=== PATIENT | male | born 1955 | race Caucasian/White ===

== ENCOUNTER 2017-10-11 10:31 | Day surgery (SDC) | payer MEDICARE ==
[2017-10-08 11:50] VITALS: BMI 34.2
--- NOTE | 2017-10-10 10:40 | HP ---
HISTORY AND PHYSICAL CHIEF COMPLAINT: Right hand pain and numbness. HISTORY OF PRESENT ILLNESS: The patient is a 61-year-old, right-hand dominant, retired gentleman who presents with right hand pain and numbness. It has worsened over the past several years. He is having significant night symptoms. He is having difficult time with gripping and grasping. He has tried conservative measures. PAST MEDICAL HISTORY: Significant for hypercholesterolemia, hypertension, asthma, arthritis, heart disease, and zen-srmtcyn-wanglbdmq diabetes. PAST SURGICAL HISTORY: Significant for bypass surgery in addition to previous spine surgery. CURRENT MEDICATIONS: 1. Aspirin. 2. Atorvastatin. 3. Baclofen. 4. Hydrochlorothiazide. 5. Neurontin. 6. Proventil. 7. Viagra. 8. Norvasc. 9. Zoloft. ALLERGIES: He notes allergies to TEQUIN. FAMILY HISTORY: Family history is unknown. SOCIAL HISTORY: Significant for previous tobacco use; however, he quit in 2013. REVIEW OF SYSTEMS: Sixteen point review of systems otherwise reviewed and is noncontributory. PHYSICAL EXAMINATION: On examination, the patient is approximately 6 feet 2 inches, 268 pounds of endomorphic habitus. HEENT exam is nonfocal. Neck is supple. He is nontender about the right shoulder and elbow. On examination of his right hand, he has mild thenar wasting. Adductor pollicis brevis strength is 4/5 on the right, 5- over 5 on the left. On the right hand, he has a positive Tinel's over the carpal canal. Carpal tunnel compression test is positive. Light touch is diminished in the right thumb, index and middle finger. EMG report 09/17/2017 right upper extremity shows right median motor latency of the carpal canal 4.2, sensory latency 8.7. IMPRESSION: 1. Right carpal tunnel syndrome-symptomatic. 2. Wof-ntudind-kgraanhml diabetes. 3. History of heart disease. RECOMMENDATIONS: I talked to the patient at length regarding his condition and treatment options. At this point, he is quite symptomatic and opts to proceed with surgery. We will plan to proceed with right carpal tunnel release. We will likely perform that as an outpatient procedure utilizing local anesthetic and IV sedation. Risks and benefits were discussed at length in layman's terms. MMODL / IJN: [id number] /
[~2017-10-11 10:31] MED LIST: DEXAMETHASONE SOD PHOSPHATE 10 MG/ML 1 ML VIAL IV ONE; LIDOCAINE 1% 20 ML VIAL (10MG/ML) FOR IV START INTRADERMA PRN; MIDAZOLAM 2 MG/2 ML VIAL IV PRN; ONDANSETRON 4 MG/2 ML VIAL IVP ONE; ceFAZolin IN SWFI 2 GM/20 ML SYRINGE IVP ONE
[2017-10-11] MEDS: LACTATED RINGERS 1,000 ML IV SCH ×2 (11:08→12:00)
[2017-10-11] MEDS ORDERED: LIDOCAINE 1% INJ 10MG/ML (20 ML MDV) SQ ONE ×2 (11:19)
[2017-10-11] MEDS ORDERED: MIDAZOLAM 2 MG/2 ML VIAL ONE (12:02)
[2017-10-11] MEDS ORDERED: LIDOCAINE 1% INJ 10MG/ML (20 ML MDV) ONE (12:02)
[2017-10-11] MEDS ORDERED: fentaNYL (PF) 50 MCG/ML 2 ML AMP ONE (12:02)
[2017-10-11] MEDS ORDERED: PROPOFOL 10 MG/ML 20 ML VIAL IV ONE (12:02)
--- NOTE | 2017-10-11 12:39 | P.OP ---
Date of Procedure: 10/11/17 Preoperative Diagnosis: Right carpal tunnel syndromesymptomatic Postoperative Diagnosis: Same Procedure(s) Performed: Right carpal tunnel release Anesthesia: MAC, local Surgeon: Liborio Blank Estimated Blood Loss (ml): 2 Pathology: none sent Condition: stable Disposition: PACU Indications for Procedure: The patient's a 61-year-old gentleman who presents with progressive right hand pain and numbness secondary carpal tunnel syndrome despite conservative measures. A discussion of the risks and benefits of operative intervention versus continued conservative measures with patient. He opted to surgery. Operative risks to include infection, neurovascular injury, development of blood clots, possible incomplete resolution of symptoms, possible recurrence of symptoms and need for subsequent procedures was discussed. Informed consent was obtained. Operative Findings: As below Description of Procedure: The patient was brought to the operating room, and after induction of IV sedation the right upper extremity was prepped and draped in normal fashion. The proposed incision site was outlined in line with the radial aspect of the fourth ray extending from the volar wrist crease distally 2-1/2 cm. 10 mL 1% lidocaine was injected. The tourniquet was inflated to 250 mmHg. The skin incision was then made. The skin and subcu tissues were divided sharply. The superficial palmar fascia was identified and split in line with the skin incision. The transverse carpal ligament was identified and transected under direct visualization distally to level the palmar fat pad. I felt this was adequate distal release. Proximally was taken to level volar wrist crease. A plane above and below the transverse carpal ligament was then bluntly developed with tenotomies. The confluence of the distal forearm fascia and the transverse carpal ligament was then transected under direct visualization with the tines pointed in the ulnar direction. I felt this was adequate proximal release. Neural lysis was not performed. The wound was irrigated normal saline. The skin was reprepped with simple 3-0 nylon suture. A sterile dressing was applied. The tourniquet was deflated less than 15 minutes total tourniquet time. The patient was then awoken from sedation and transferred to recovery room in good condition. No complications were incurred. Sponge and needle counts were correct at the end of the case.
[2017-10-11 12:41] VITALS: TEMP 98
[2017-10-11 13:10] VITALS: RESP 16
[2017-10-11] MEDS ORDERED: Acetaminophen-Codeine 300-30mg TAB PO ONE (13:30)
[2017-10-11 13:50] VITALS: BP 133/76; PULSE 65
== END 2017-10-11 14:10 | disposition home or self-care (01) ==
LOC: OR 10:31
PROVIDERS: ATTEND Orthopaedic Surgery
DX: G56.01 Carpal tunnel syndrome, right upper limb (principal); E78.00 Pure hypercholesterolemia, unspecified; I10 Essential (primary) hypertension; J45.909 Unspecified asthma, uncomplicated; M19.90 Unspecified osteoarthritis, unspecified site; I51.9 Heart disease, unspecified; E11.9 Type 2 diabetes mellitus without complications; Z79.82 Long term (current) use of aspirin; Z79.899 Other long term (current) drug therapy; Z88.1 Allergy status to other antibiotic agents; Z87.891 Personal history of nicotine dependence; E66.01 Morbid (severe) obesity due to excess calories; Z68.34 Body mass index [BMI] 34.0-34.9, adult; Z95.1 Presence of aortocoronary bypass graft
CPT/HCPCS: 64721; J2250; J1100; J2405; J2001; J3010; J2704; J0690

== ENCOUNTER → 2018-08-05 | Outpatient (CLI) | payer MEDICARE ==
[2018-08-05 16:35] LABS: African American GFR (CKD) 84.1 (60.0-200.0)
== END | disposition home or self-care (01) ==
LOC: LABWHC1 11:11
PROVIDERS: ATTEND Internal Medicine Interventional Cardiology
DX: M79.662 Pain in left lower leg (principal); M79.661 Pain in right lower leg; I71.4 Abdominal aortic aneurysm, without rupture
CPT/HCPCS: 36415; 82565; 84520

== ENCOUNTER → 2018-08-07 | Outpatient (CLI) | payer MEDICARE ==
--- NOTE | 2018-08-07 08:21 | CT ---
EXAMINATION TYPE: CT angio abd aorta w/Runoff DATE OF EXAM: 08/07/2018 COMPARISON: None HISTORY: Decreased pressure in leg, Left leg pain CT DLP: 1695.8 mGycm, Automated Exposure Control for Dose Reduction was Utilized. CONTRAST: CT scan of the abdomen and pelvis is performed with oral and with IV Contrast, patient injected with 125 mL of Isovue 370. FINDINGS: ABDOMEN: The lungs are clear. Liver, pancreas, spleen, adrenal glands and gallbladder have a normal a ppearance. Multiple hypodensities in the kidney are indeterminate but likely related to simple cysts. Lipoma adjacent to the right is noted within the musculature. Bowel gas pattern nonspecific. Small anterior fat-containing abdominal hernia. No pathologic adenopat hy. OTHER: There is a mild to moderate atherosclerotic plaque of the aorta and its sidebranches. Maximal dimensi on is seen to measure 4.2 cm well below the origin of the renal arteries. Aneurysm originates approxi mately 2 cm below the lowest renal artery. There is ectasia of the proximal iliac vasculature with mo derate atherosclerotic plaque extends into the external and internal iliac arteries. There appears be a short segmental occlusion of the right internal iliac artery. Right lower extremity demonstrates moderate plaque present approximately 50-60% right common femoral artery with a isolated area of approximately 85 % stenosis on axial image 161. There is multifocal di sease throughout the superficial femoral artery with severe stenosis noted proximally. Deep femoral a rtery is patent with mild plaque. Enhancement infrapopliteal vasculature is limited. There is mild pl aque involving the right popliteal artery. Evaluation the trifurcation vessels is limited. There is p laque involving the anterior tibial peroneal trunk with a suspected significant stenosis on axial breana ge 83. Multifocal disease is seen. Trifurcation vessels are diminutive in size and reduced enhancemen t with mild atherosclerotic changes with all 3 vessels seen to the level of the ankle. Left lower extremity demonstrates atherosclerotic plaque involving the left common femoral artery shonna suring approximately 70%. There is a more isolated area of critical stenosis measuring greater than 9 0% on axial image 150 09/18/1956. Suspect a short segmental occlusion within the proximal superficial f emoral artery and there is significant plaque involving the left deep femoral artery. Multifocal dise ase of the remaining portion of superficial femoral artery with multifocal severe changes are suspect ed. There is reduced enhancement in the region which limits assessment. Popliteal artery demonstrates mild to moderate atherosclerotic plaque with approximately 50% stenosis on image 335. Tibioperoneal trunk and proximal anterior tibial artery demonstrates moderate disease. There is mild disease involv ing the proximal portion of the peroneal artery. 3 vessels are diminutive in size but seen to the lev el of the ankle to be patent IMPRESSION: IMPRESSION: 1. Infrarenal aortic aneurysm with a maximal dimension of approximately 4.2 cm. Aneurysm originates a pproximately 2 cm below the renal artery. There is ectasia of the proximal iliac vasculature without evidence of discrete aneurysm. 2. Diffuse atherosclerotic changes with multifocal disease involving the common femoral and superfici al femoral arteries bilaterally. There is reduced enhancement the level the femoral artery bilaterall y with suspected segmental occlusion involving the left superficial femoral artery. 2. Popliteal and infrapopliteal atherosclerotic occlusive disease as discussed above.
== END | disposition home or self-care (01) ==
LOC: RADCTMAIN 07:04
PROVIDERS: ATTEND Internal Medicine Interventional Cardiology
DX: I71.9 Aortic aneurysm of unspecified site, without rupture (principal); I70.209 Unspecified atherosclerosis of native arteries of extremities, unspecified extremity
CPT/HCPCS: 75635; Q9967

== ENCOUNTER 2018-11-05 12:19 | Day surgery (SDC) | payer MEDICARE ==
[~2018-11-05 12:19] MED LIST changes: +ASPIRIN 325 MG TAB PO STA; -DEXAMETHASONE SOD PHOSPHATE 10 MG/ML 1 ML VIAL IV ONE; -LIDOCAINE 1% 20 ML VIAL (10MG/ML) FOR IV START INTRADERMA PRN; -MIDAZOLAM 2 MG/2 ML VIAL IV PRN; -ONDANSETRON 4 MG/2 ML VIAL IVP ONE; +SODIUM CHLORIDE 0.9% 1,000 ML in EMPTY BAG 1 BAG IV ONE; -ceFAZolin IN SWFI 2 GM/20 ML SYRINGE IVP ONE
[2018-11-05] MEDS ORDERED: SODIUM CHLORIDE 0.9% 1,000 ML IV ONE (12:57)
[2018-11-05] MEDS ORDERED: MIDAZOLAM (PF) 2 MG/2 ML VIAL IV ONE ×2 (14:35→14:52)
[2018-11-05] MEDS ORDERED: LIDOCAINE 1% INJ 10MG/ML (20 ML MDV) SQ ONE (14:52)
[2018-11-05] MEDS ORDERED: SODIUM CHLORIDE 0.9% 500 ML 500 ML with niCARdipine 6.25 MG, NITROGLYCERIN-D5W PMX 0.05... IV ONE ×4 (15:00)
[2018-11-05] MEDS ORDERED: SODIUM CHLORIDE 0.9% 1,000 ML IV SCH (16:30)
--- NOTE | 2018-11-05 16:57 | IR ---
Fluoroscopy HISTORY: Arterial occlusion 20 minutes fluoroscopy time supplied to the referring clinician. 472 intraoperative C-arm images doc ument the procedure. See dictated report from cardiology.
[2018-11-05] MEDS ORDERED: ATROPINE SULFATE 0.1 MG/ML 10ML SYRINGE ONE (18:12)
[2018-11-05 18:40] VITALS: BMI 32.8
[2018-11-05] MEDS ORDERED: TEMAZEPAM 15 MG CAP PO PRN (21:38)
[2018-11-05] MEDS: amLODIPine 5 MG TAB PO SCH (21:58)
[2018-11-05] MEDS: CARVEDILOL 6.25 MG TAB PO SCH (21:58)
[2018-11-05] MEDS ORDERED: ATORVASTATIN 40 MG TAB PO SCH (22:00)
--- NOTE | 2018-11-05 22:49 | AN ---
ANGIOGRAPHY REPORT DATE OF SERVICE: November 05, 2018 PERFORMING PHYSICIAN: Yoni Schwarz MD, room service runner. PROCEDURE PERFORMED: 1. An abdominal aortogram .. 2. Bilateral lower extremities runoff. 3. Selective left common femoral artery angiogram. 4. Gradient measurement across the right common iliac artery. INDICATION: This is a 62-year-old gentleman who sees Dr. Cruz in the office as an outpatient with history of CAD, as well as multiple comorbid conditions, who was experiencing left leg intermittent claudication and he underwent CTA of the aorta and lower extremities and that showed occluded left femoral artery. Because of that he was brought today to undergo an intervention. APPROACH: Right common femoral artery. COMPLICATION: None. LEVEL OF SEDATION: Moderate with sedation length of an hour and 22 minutes. 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 The right common femoral artery was cannulated using micropuncture technique and a micropuncture wire passed easily and an 11 cm sheath in the right common femoral artery. I did select the left SFA using 0.035 [place] [employer]vantage wire with a 5-[place] Rim catheter. After that, I did exchange my 11 cm 6-Mozambican sheath into 55 cm 6-Moz[place]ican sheath using the 0.035 [place] Advantage wire. After that, I did selective left lower extremity angiogram. For the right leg, I did selective right lower extremity angiogram using the injection through the sheath. After that I did a gradient measurement across the common iliac artery. The procedure was completed without any complication. SELECTIVE PERIPHERAL ANGIOGRAM: 1. The aorta is aneurysmal. It does have no evidence of severe occlusive disease. 2. Common iliac arteries: The ostial of the right common iliac artery appeared to be hazy with intermediate lesion. I did a gradient across it and that came into be nonischemic. The left common iliac artery appeared to be angiographically normal. 3. Internal iliac arteries: Both are patent. 4. External iliac arteries: Both are patent. 5. Common femoral arteries: The right common femoral artery appeared to have mild disease only and the left common femoral artery is occluded. 6. Profunda: The right profunda is patent and the left profunda is occluded. 7. SFA: The right SFA has mild to moderate diffuse disease and the left SFA appeared to be occluded in the proximal portion and after that mild diffuse disease. 8. Popliteal: Both popliteals are patent. 9. Below the knee: There is 1 vessel runoff below the knee bilaterally with posterior tibial. CONCLUSION: 1. Abdominal aortic aneurysm. 2. Tortuous bilateral iliac arteries segments. 3. Complex occlusion involving the common femoral artery, profunda, and SFA. 4. One vessel runoff below the knee bilaterally with posterior tibial. POST PROCEDURE MANAGEMENT: Given the above anatomy, and the occlusion of the profunda, I felt that the patient would benefit from femoral endarterectomy as well as patch angioplasty of the common femoral, profunda, and SFA. MMODL / IJN: [id number] /
[2018-11-05 23:44] VITALS: RESP 18
[2018-11-06] MEDS: CARVEDILOL 6.25 MG TAB PO SCH (06:33)
[2018-11-06] MEDS: amLODIPine 5 MG TAB PO SCH (09:00)
[2018-11-06] MEDS ORDERED: MONTELUKAST 10 MG TAB PO SCH (09:00)
[2018-11-06] MEDS ORDERED: LISINOPRIL-HCTZ 20-25 MG 1 EACH TAB PO SCH (09:00)
[2018-11-06] MEDS ORDERED: ASPIRIN 81 MG PO SCH (09:00)
--- NOTE | 2018-11-06 09:26 | DS ---
DISCHARGE SUMMARY DATE OF ADMISSION: November 05, 2018 DATE OF DISCHARGE: November 06, 2018 BRIEF HISTORY: This is a pleasant 62-year-old gentleman who sees Dr. Cruz in the office as an outpatient who was experiencing left leg intermittent claudication and underwent a peripheral angiogram yesterday and that revealed complex occlusion involving the left common femoral artery as well as involving the bifurcation of the common femoral artery into SFA and profunda. Both of the SFA and profunda are involved in the occlusion. I did recommend surgical revascularization and endarterectomy as well as patch angioplasty of the common femoral as well as SFA and profunda. Having said that the patient is going to be discharged home. He is going to be seen by Dr. Cruz in the office next week. MMOJL / LUANNEN: [id number] /
[2018-11-06 11:01] VITALS: BP 129/68; PULSE 59; TEMP 97.7
== END 2018-11-06 11:09 | disposition home or self-care (01) ==
LOC: CATHCVL 12:19 → 3SCARD 16:22 → CATHCVL 11-06 11:09
PROVIDERS: ATTEND Internal Medicine Interventional Cardiology
DX: I71.9 Aortic aneurysm of unspecified site, without rupture (principal); I77.1 Stricture of artery; E11.51 Type 2 diabetes mellitus with diabetic peripheral angiopathy without gangrene; I70.212 Atherosclerosis of native arteries of extremities with intermittent claudication, left leg; I10 Essential (primary) hypertension; E78.5 Hyperlipidemia, unspecified; I48.0 Paroxysmal atrial fibrillation; Z87.891 Personal history of nicotine dependence; Z95.1 Presence of aortocoronary bypass graft; I25.2 Old myocardial infarction; Z79.82 Long term (current) use of aspirin; Z79.899 Other long term (current) drug therapy
CPT/HCPCS: 36247; 75716; C1894 ×2; C1769 ×7; J2001; J1644; J2250

== ENCOUNTER 2018-12-03 18:28 | Emergency (ER) | payer MEDICARE ==
[2018-12-03 18:41] VITALS: BP 158/88; PULSE 61; RESP 18; TEMP 98.2
--- NOTE | 2018-12-03 20:24 | US ---
EXAMINATION TYPE: US venous doppler duplex LE LT DATE OF EXAM: 12/03/2018 8:09 PM COMPARISON: NONE CLINICAL HISTORY: PAIN. Severe pain left leg x 3 hours. Patient takes aspirin. No hx of DVT. SIDE PERFORMED: Left TECHNIQUE: The lower extremity deep venous system is examined utilizing real time linear array sonog james with graded compression, doppler sonography and color-flow sonography. VESSELS IMAGED: Common Femoral Vein Deep Femoral Vein Greater Saphenous Vein * Femoral Vein Popliteal Vein Small Saphenous Vein * Proximal Calf Veins (* superficial vessels) Left Leg: No evidence of DVT in veins imaged from prox calf vein to CFV/GSV. EIV not visualized. IMPRESSION: 1. Visualized Left lower extremity ultrasound negative for deep venous thrombosis.
--- NOTE | 2018-12-03 21:11 | ED ---
General Adult HPI <Modesto Mayen - Last Filed: 12/03/18 21:42> - General Source: patient Mode of arrival: ambulatory Limitations: no limitations <Aroldo Sotomayor - Last Filed: 12/03/18 23:58> - General Chief complaint: Extremity Injury, Lower Stated complaint: Leg pain Time Seen by Provider: 12/03/18 18:47 - History of Present Illness Initial comments: Patient is a 62-year-old male with history of PVD is presenting to the emergency department with a chief complaint of left leg pain. Patient reports there was an attempt to stand the arteries in the left leg but it was a failed attempt. Patient reports she is scheduled to see a vascular surgeon in 2 weeks however the pain is greatly increased. Patient reports he developed a sudden onset of pain along the left leg. Patient does report numbness in his left leg but states that is present from before the attempted stent procedure. Patient de nies any changes in skin color between both lower extremities. Patient reports most of the pain is located along the lateral aspect of the left lower extremity. Patient denies any left lower extremity edema. Patient denies any shortness of breath, coughing, recent prolonged periods of activity, chemotherapy or cancer (Aroldo Sotomayor) - Related Data Home Medications Medication Instructions Recorded Confirmed Carvedilol [Coreg] 6.25 mg PO BID 10/08/17 11/05/18 Lisinopril-Hctz 20-25 mg 1 tab PO DAILY 10/08/17 11/05/18 [Zestoretic 20-25] Montelukast [Singulair] 10 mg PO DAILY 10/08/17 11/05/18 amLODIPine [Norvasc] 5 mg PO BID 10/08/17 11/05/18 Atorvastatin [Lipitor] 40 mg PO HS 10/11/17 11/05/18 Evolocumab [Repatha Syringe] 140 mg SQ Q14D 10/09/18 11/05/18 Previous Rx's Medication Instructions Recorded Aspirin EC [Ecotrin Low Dose] 162 mg PO DAILY #60 tablet. 02/11/14 Allergies Allergy/AdvReac Type Severity Reaction Status Date / Time tequin Allergy RED SKIN, Uncoded 12/03/18 18:35 TINGLING IN EXTREMITIES Review of Systems ROS Other: All systems not noted in ROS Statement are negative. <Modesto Mayen - Last Filed: 12/03/18 21:42> ROS Other: All systems not noted in ROS Statement are negative. <Aroldo Sotomayor - Last Filed: 12/03/18 23:58> ROS Statement: Those systems with pertinent positive or pertinent negative responses have been documented in the HPI. Past Medical History Past Medical History: Atrial Flutter, Coronary Artery Disease (CAD), Hyperl ipidemia, Hypertension, Myocardial Infarction ([place]) Additional Past Medical History / Comment(s): IN 8 years ago and stent placement in [place]. SOB with activity. Uses inhalers for past smoking history. Last Myocardial Infarction Date:: 01/22/2014 History of Any Multi-Drug Resistant Organisms: None Reported Past Surgical History: Back Surgery, Coronary Bypass/CABG, Heart Catheterization With Stent, Orthopedic Surgery, Tonsillectomy Additional Past Surgical History / Comment(s): R carpal tunnel. Past Anesthesia/Blood Transfusion Reactions: No Reported Reaction Date of Last Stent Placement:: 01/22/2014 Past Psychological History: No Psychological Hx Reported Smoking Status: Former smoker Past Alcohol Use History: Occasional Past Drug Use History: None Reported - Past Family History Daughter(s) Family Medical History: No Reported History Additional Family Medical History / Comment(s): Patient was adopted. Does not know family history. <Aroldo Sotomayor - Last Filed: 12/03/18 23:58> General Exam Limitations: no limitations General appearance: alert, in no apparent distress Head exam: Present: atraumatic, normocephalic, normal inspection Eye exam: Present: normal appearance Pupils: Present: normal accommodation ENT exam: Present: normal exam, mucous membranes moist, normal external ear exam Neck exam: Present: normal inspection, full ROM Respiratory exam: Present: normal lung sounds bilaterally Cardiovascular Exam: Present: regular rate, normal rhythm, normal heart sounds Extremities exam: Present: full ROM, tenderness, other (+2 dorsalis pedis and posterior tibialis on right leg. +1 posterior tibialis amd 0 dorsalis pedis. unable detect dorsalis pedis with doppler. Numbness in left foot). Absent: normal inspection (Mild discoloration along the toes of the left foot versus right. No changes in temperature between bilateral lower extremities. No signs of edema. No signs of infection.) Back exam: Present: normal inspection, full ROM Neurological exam: Present: alert, oriented X3 Psychiatric exam: Present: normal affect, normal mood Skin exam: Present: warm, intact, normal color <Aroldo Sotomayor - Last Filed: 12/03/18 23:58> Course Vital Signs 12/03/18 18:35 Temperature 98.2 F Pulse Rate 61 Respiratory 18 Rate Blood Pressure 158/88 O2 Sat by Pulse 96 Oximetry Medical Decision Making <Modesto Mayen - Last Filed: 12/03/18 21:42> <Aroldo Sotomayor - Last Filed: 12/03/18 23:58> - Medical Decision Making Patient reexamined and reevaluated by myself, Dr. Mayen. Patient complains of significant discomfort left lower leg, below the knee. Patient states symptoms are somewhat similar to previous transient claudication. Patient was seen by Dr. evans for this. Patient did have an appointment today with vascular surgeon however had to reschedule. Patient states discomfort is tolerable at this time. No color change. No coolness of the extremities. Cap refill less than 2 seconds. No tenderness to palpation. Difficulty feeling all pedal pulses. Doppler he is identified as posterior tibialis on the left. Unable to identify dorsalis pedis on the left. Case was discussed in detail with Dr. Richardson who is scheduled to see patient. He is okay with discharge of patient and will follow-up as planned on December 16. Patient updated. (Modesto Mayen) Patient is 62-year-old male with history of PVD is presenting to the emergency department with a chief complaint of left leg pain. Patient has developed pain starting at the hip region and radiating distally along the lateral aspects alert area physical examination there is very mild skin discoloration at the toes. No changes in temperature between lower extremities. No color discoloration. No changes in hair pattern. Patient still has full range of motion. No palpable tenderness. Dr. Mayen also examined the patient and was unable to detect dorsalis pedis pulse with Doppler. Case was discussed with Dr. Richardson who scheduled to see the patient. He suggested the patient be discharged and will follow-up in about 2 weeks. Patient reports the pain is tolerable at this point. (Aroldo Sotomayor) Disposition <Modesto Mayen - Last Filed: 12/03/18 21:42> Is patient prescribed a controlled substance at d/c from ED?: No Time of Disposition: 21:11 <Maria Del RosariomadhavmartinTobyo - Last Filed: 12/03/18 23:58> Clinical Impression: Leg pain, left Disposition: HOME SELF-CARE Condition: Stable Instructions (If sedation given, give patient instructions): Leg Pain (ED) Additional Instructions: Please follow up with vascular surgery. Please return to emergency department if symptoms worsen. Alternate between Tylenol and ibuprofen for pain control Referrals: Manolo Morales MD [Primary Care Provider] - 1-2 days
== END 2018-12-03 21:17 | disposition home or self-care (01) ==
LOC: EC 18:28
DX: M79.605 Pain in left leg (principal); R20.0 Anesthesia of skin; I73.9 Peripheral vascular disease, unspecified; I48.92 Unspecified atrial flutter; I25.10 Atherosclerotic heart disease of native coronary artery without angina pectoris; I10 Essential (primary) hypertension; E78.5 Hyperlipidemia, unspecified; I25.2 Old myocardial infarction; Z79.02 Long term (current) use of antithrombotics/antiplatelets; Z79.899 Other long term (current) drug therapy; Z88.1 Allergy status to other antibiotic agents; Z95.1 Presence of aortocoronary bypass graft; Z95.5 Presence of coronary angioplasty implant and graft; Z87.891 Personal history of nicotine dependence
CPT/HCPCS: 99283

== ENCOUNTER → 2019-01-21 | Outpatient (CLI) | payer MEDICARE ==
[2019-01-21 08:28] LABS: Basophils # (A) 0.1 k/uL (0-0.2); Basophils % (A) 1 %; Eosinophils # (A) 0.2 k/uL (0-0.7); Eosinophils % (A) 3 %; HCT 47.2 % (39.0-53.0); HGB 15.9 gm/dL (13.0-17.5); Lymphocytes # (A) 1.4 k/uL (1.0-4.8); Lymphocytes % (A) 26 %; MCH 31.2 pg (25.0-35.0); MCHC 33.7 g/dL (31.0-37.0); MCV 92.6 fL (80.0-100.0); Mean Platelet Volume 5.9; Monocytes # (A) 0.4 k/uL (0-1.0); Monocytes % (A) 8 %; Neutrophils # (A) 3.2 k/uL (1.3-7.7); Neutrophils % (A) 59 %; Platelet Count 239 k/uL (150-450); RDW 12.6 % (11.5-15.5); WBC 5.4 k/uL (3.8-10.6)
[2019-01-21 08:39] LABS: African American GFR (CKD) >90 (>60 ml/min/1.73 sqM); Anion Gap 9 mmol/L; Blood Urea Nitrogen 25 mg/dL (9-20); Carbon Dioxide 27 mmol/L (22-30); Chloride 102 mmol/L (98-107); Non-African American GFR(CKD) 90 (>60 ml/min/1.73 sqM); Potassium 4.9 mmol/L (3.5-5.1); Sodium 138 mmol/L (137-145)
== END | disposition home or self-care (01) ==
LOC: LABPAT 07:59
PROVIDERS: ATTEND Surgery
DX: Z01.812 Encounter for preprocedural laboratory examination (principal); I70.213 Atherosclerosis of native arteries of extremities with intermittent claudication, bilateral legs
CPT/HCPCS: 36415; 80051; 82565; 84520; 85025

== ENCOUNTER 2019-02-27 06:05 | Inpatient (IN) | payer MEDICARE ==
[2019-02-24 08:37] VITALS: BMI 35.9
[~2019-02-27 06:05] MED LIST changes: -ASPIRIN 325 MG TAB PO STA; +DEXAMETHASONE SOD PHOSPHATE 10 MG/ML 1 ML VIAL IV ONE; +HYDROmorphone 0.5 MG/0.5 ML SYRINGE IVP PRN; +LACTATED RINGERS 1,000 ML IV SCH; +MIDAZOLAM 2 MG/2 ML VIAL IV PRN; +ONDANSETRON 4 MG/2 ML VIAL IVP ONE; +SCOPOLAMINE 1.5MG/72HR PATCH TRANSDERM ONE; -SODIUM CHLORIDE 0.9% 1,000 ML in EMPTY BAG 1 BAG IV ONE; +ceFAZolin 3 GM in SODIUM CHLORIDE 0.9% 100 ML IVPB ONE
[2019-02-27] MEDS ORDERED: HYDROmorphone (PF) 1 MG/ML ONE (07:24)
[2019-02-27] MEDS ORDERED: MIDAZOLAM 2 MG/2 ML VIAL ONE (07:24)
[2019-02-27] MEDS ORDERED: PROPOFOL 10 MG/ML 20 ML VIAL IV ONE (07:24)
[2019-02-27] MEDS ORDERED: LIDOCAINE 1% INJ 10MG/ML (20 ML MDV) ONE (07:24)
[2019-02-27] MEDS ORDERED: ROCURONIUM BROMIDE 10 MG/ML 10 ML VIAL IV ONE (07:24)
[2019-02-27] MEDS ORDERED: HEPARIN SODIUM,PORCINE 10,000 UNIT/ML 1 ML VIAL ONE (07:24)
[2019-02-27] MEDS ORDERED: SUCCINYLCHOLINE CHLORIDE VIAL 200 MG/10 ML VIAL IV ONE (07:24)
[2019-02-27] MEDS ORDERED: ePHEDrine SULFATE/0.9% NACL/PF 50 MG/5 ML SYRINGE IV ONE (07:24)
[2019-02-27] MEDS ORDERED: fentaNYL (PF) 50 MCG/ML 2 ML AMP ONE (07:24)
[2019-02-27] MEDS ORDERED: HEPARIN SODIUM,PORCINE 10,000 UNIT in SODIUM CHLORIDE 0.9% 1,000 ML IRRIGATION ONE (08:00)
[2019-02-27] MEDS ORDERED: CEFAZOLIN IRRIGATION ONE (08:00)
[2019-02-27] MEDS ORDERED: BACITRACIN IRRIGATION ONE (08:00)
[2019-02-27] MEDS ORDERED: SODIUM CHLORIDE 0.9% IRRIGATION ONE (08:00)
[2019-02-27] MEDS ORDERED: LACTATED RINGERS 1,000 ML IV ONE ×2 (08:00→09:29)
[2019-02-27] MEDS ORDERED: THROMBIN (BOVINE) 5,000 UNIT VIAL TOPICAL ONE (09:48)
[2019-02-27] MEDS ORDERED: GELATIN SPONGE,ABSORB (LARGE) 1 EACH SPONGE TOPICAL ONE (09:48)
[2019-02-27] MEDS ORDERED: HYDROcodone/APAP 5-325MG 1 EACH TAB PO PRN (10:01)
[2019-02-27] MEDS ORDERED: MORPHINE SULFATE 2 MG/ML SYRINGE IVP PRN (10:01)
--- NOTE | 2019-02-27 10:20 | P.OP ---
Description of Procedure: Date: 02/27/2019 Preoperative diagnosis: Left common femoral, deep femoral occlusion with disabling claudication Postoperative diagnosis: Same Procedure: Left common femoral, superficial femoral, profundus femoris endarterectomy with patch angioplasty Surgeon: Puma Tyler DO Turbine Measurements Engineer: Isis Cade DO Anesthesia: General Estimated blood loss: 100 mL Complications: None Condition: Stable Disposition: Palpable left PT pulse Indications: 63-year-old gentleman who initially presented to Dr. Schwarz's office for lower extremity pain with ambulation and at rest involving his left leg. He states he would get significant pain at rest as well involving his left foot but worsened with ambulation. He underwent angiogram which demonstrated a complete occlusion of the common femoral artery on the left as well as the profundus femoris and superficial femoral artery just after takeoff. He is presenting to the hospital today for elective endarterectomy of the left femoral artery. Operative narrative: After written informed consent was obtained for the patient all risks benefits and complications were described the patient is brought to the operative suite and laid in the supine position. The area of the abdomen and left lower extremity was prepped and draped in usual sterile fashion after appropriate anesthetic was performed per the anesthesiologist. An oblique incision was then created at the left groin with a 10 blade scalpel and dissection was carried down to the common femoral artery with electrocautery. Common femoral artery was encountered and dissection of the common femoral, profundus femoris, and superficial femoral artery was performed in a circumferential manner. Control was then obtained with vessel loops of the common femoral, superficial femoral and profundus femoris arteries. Once controlled patient was administered heparin and followed with ACTs for appropriate heparinization. Once ACT was greater than 200 control was obtained and arteriotomy was created with 11 blade scalpel and extended with Pott Osei scissors from the common femoral to the superficial femoral artery. Large amoun t of dense calcific plaque was encountered. An endarterectomy was then performed with a [place]/elevator with good endpoints noted at the superficial femoral artery and proximal femoral artery. Eversion technique was utilized for the endarterectomy of the profundus femoris. Good brisk backbleeding was noted from the superficial femoral artery as well as the profundus femoris at the conclusion of the endarterectomy. All free debris was then removed the area was irrigated and once any free debris was removed patch angioplasty was performed. An 8 x 0.8 mm bovine pericardial patch was then placed for patch angioplasty. This was secured with 6-0 Prolene suture in a running fashion. Prior to last sutures being placed backbleeding was assessed and shown to be brisk from the superficial femoral as well as the profundus femoris artery. Superficial femoral artery was then clamped and the profundus femoris was opened allowing any free debris to be flushed into the deep system. Inflow was then released revealing good pulsatile blood flow through the patch. Final sutures were then placed for hemostasis. All control was released revealing good pulsatile blood flow into the SFA as well as the profundus femoris artery. The area was then copiously irrigated with antibiotic solution. Hemostasis was assured with Gelfoam and thrombin. Once hemostatic the incision was then closed in a m ultilayer fashion. Skin was cleansed and dressed with a Prevena incisional vac. Patient tolerated the procedure well and had a palpable PT pulse at the conclusion of the procedure. His and sent to PACU for recovery.
[2019-02-27] MEDS: SODIUM CHLORIDE 0.9% 1,000 ML IV SCH (11:45)
--- NOTE | 2019-02-27 15:09 | P.CONS ---
History of Present Illness - Reason for Consult Consult date: 02/27/19 Medical management - Chief Complaint Post left common femoral superficial femoral profundus patch angioplasty - History of Present Illness This is 63 year old male one of Manolo Morales with a previous medical history significant for hypertension and hypertensive cardiovascular disease with left ventricular hypertrophy, coronary artery disease status post coronary artery bypass graft for three-vessel disease back in 2013 and prior PCI many years ago prior to his CABG, atrial fibrillation, history of PAD status post angiogram patient underwent left common femoral superficial femoral profundus femoris endarterectomy with patch angioplasty, and we were asked to see the patient for medical management. Review of Systems Constitutional: Denies anorexia, Denies chronic headaches, Denies lethargy, Denies weakness, Denies weight gain Eyes: denies as per HPI, denies blurred vision, denies bulging eye Ears: deny: decreased hearing Ears, nose, mouth and throat: Denies dysphagia, Denies neck lump, Denies sore throat Cardiovascular: Denies chest pain, Denies claudication, Denies decreased exercise tolerance, Denies lightheadedness, Denies rapid heart beat, Denies syncope Respiratory: Reports snoring, Denies congestion, Denies cough, Denies cough with sputum, Denies home oxygen, Denies sleep apnea, Denies wheezing Gastrointestinal: Denies abdominal pain, Denies bloating, Denies BRBPR, Denies hematemesis, Denies hematochezia, Denies melena, Denies nausea, Denies vomiting Musculoskeletal: Denies myalgias Musculoskeletal: absent: ankle pain, ankle stiffness, ankle swelling, elbow pain, elbow stiffness, elbow swelling, foot pain, foot stiffness, foot swelling, hand pain, hand stiffness, hand swelling, hip pain, hip stiffness, hip swelling, knee pain, knee stiffness, knee swelling, shoulder pain, shoulder stiffness, shoulder swelling, wrist pain, wrist stiffness, wrist swelling Integumentary: Denies pruritus, Denies rash Neurological: Denies numbness, Denies weakness Psychiatric: Denies anxiety, Denies depression Endocrine: Denies fatigue, Denies weight change Past Medical History Past Medical History: Atrial Flutter, Coronary Artery Disease (CAD), Hyperlipidemia, Hypertension, Myocardial Infarction (AR) Additional Past Medical History / Comment(s): AR 8 years ago and stent placement in [place]. SOB with activity. Uses inhalers for past smoking history. Last Myocardial Infarction Date:: 01/22/2014 History of Any Multi-Drug Resistant Organisms: None Reported Past Surgical History: Back Surgery, Coronary Bypass/CABG, Heart Catheterization With Stent, Orthopedic Surgery, Tonsillectomy Additional Past Surgical History / Comment(s): R carpal tunnel. Past Anesthesia/Blood Transfusion Reactions: No Reported Reaction Date of Last Stent Placement:: 01/22/2014 Past Psychological History: No Psychological Hx Reported Smoking Status: Former smoker (Patient smoked about a pack every day and he quit and 70,014.) Past Alcohol Use History: Occasional Additional Past Alcohol Use History / Comment(s): Quit smoking 2013 Past Drug Use History: None Reported - Past Family History Daughter(s) Family Medical History: No Reported History Additional Family Medical History / Comment(s): Patient was adopted. Does not know family history. Medications and Allergies Home Medications Medication Instructions Recorded Confirmed Type Aspirin EC [Ecotrin Low Dose] 162 mg PO DAILY #60 tablet. 02/11/14 02/27/19 Rx Carvedilol [Coreg] 6.25 mg PO BID 10/08/17 02/27/19 History Montelukast [Singulair] 10 mg PO DAILY 10/08/17 02/27/19 History amLODIPine [Norvasc] 5 mg PO BID 10/08/17 02/27/19 History Evolocumab [Repatha Syringe] 140 mg SQ Q14D 10/09/18 02/27/19 History Simvastatin [Zocor] 10 mg PO HS 01/23/19 02/27/19 History Losartan/Hydrochlorothiazide 1 each PO DAILY 02/24/19 02/27/19 History [Losartan-Hctz 100-25 mg Tab] Allergies Allergy/AdvReac Type Severity Reaction Status Date / Time tequin Allergy RED SKIN, Uncoded 02/27/19 06:24 TINGLING IN EXTREMITIES Physical Exam Vitals: Vital Signs Temp Pulse Pulse Resp BP BP Pulse Ox 02/27/19 12:00 74 20 124/64 94 L 02/27/19 11:38 71 133/71 02/27/19 11:05 67 16 135/69 98 02/27/19 10:50 66 18 119/65 100 02/27/19 10:35 70 16 123/60 100 02/27/19 10:20 98 F 95 18 113/64 95 02/27/19 06:28 97.4 F L 60 16 138/68 94 L Intake and Output 02/26/19 02/27/19 02/27/19 22:59 06:59 14:59 Intake Total 200 2342 Output Total 820 Balance 200 1522 Intake: IV 200 2102 Oral 240 Output: Urine 720 Estimated Blood Loss 100 Other: # Voids 1 Weight 121.3 kg 121.3 kg HEENT: Head is atraumatic, normocephalic, pupils were equal round and reactive to light and accommodation, extraocular muscle movement were intact. His membranes mouth are somewhat dry. Neck: Short, thick, no JVP, no bruit. Chest: Decreased breath sounds at the bases, few rhonchi, no expiratory wheezes, no chest wall tenderness, no intercostal retractions per Heart: First heart sound is depressed, second heart sounds normal, there is no gallop, there is systolic ejection murmur 2/6 was normal. Abdomen: Soft nontender, nondistended, positive bowel sounds. Extremities: There is a wound VAC in the left groin, dorsalis pedis +2 bilaterally. Neurologic examination: Patient is awake alert and oriented 3, cranial nerves II through XII appear grossly intact, muscle power 4 out of 5 in upper extremities and 4 out of 5 in bilateral lower extremities. Assessment and Plan Assessment: Assessment and plan: 1. Post operative day #0 status post left common femoral superficial femoral and profundus femoris endarterectomy with patch angioplasty. Patient was instructed to use the incentive spirometer to reduce the incidence of atelectasis and healthcare associated pneumonia, continue with IV fluid resuscitation over the next 24 hours, continue with the current pain management as outlined by vascular surgery. Continue aspirin 160 mg orally once every day. 2. CAD post-PCI and CABG back in 2013. Continue patient on aspirin 162 mg once every day, Coreg 6.25 mg orally twice every day, Lipitor 10 mg orally once every day. 3. Hypertension and hypertensive cardiovascular disease. Continue patient on losartan 100/25 mg orally once every day, Coreg 6.25 mg orally twice every day, and amlodipine 5 mg orally twice every day. 4. Hyperlipidemia. Continue with Lipitor 10 mg orally once every day. 5. Obesity with possible obstructive sleep apnea. Patient was instructed to have a polysomnogram as an outpatient and likely will require CPAP. 6. PAD. Continue treatment as in paragraph #1. 7. Thank you for the consult we'll follow with you.
[2019-02-27 15:58] LABS: Appearance,Urine Clear (Clear); Bilirubin,Urine Negative (Negative); Blood,Urine Moderate (Negative); Color,Urine Yellow; Glucose,Urine (UA) Negative (Negative); Ketones,Urine Negative (Negative); Leukocyte Esterase,Urine Large (Negative); Mucus,Urine Rare /hpf; Nitrite,Urine Negative (Negative); PH, Urine 6.5 (5.0-8.0); Protein,Urine 1+ (Negative); RBC,Urine 51 /hpf (0-5); Specific Gravity,Urine 1.019 (1.001-1.035); Urobilinogen,Urine <2.0 mg/dL (<2.0); WBC,Urine 75 /hpf (0-5)
[2019-02-27] MEDS: CARVEDILOL 6.25 MG TAB PO SCH (16:13)
[2019-02-27] MEDS: amLODIPine 5 MG TAB PO SCH (20:43)
[2019-02-27] MEDS ORDERED: ATORVASTATIN 10 MG TAB PO SCH (21:00)
[2019-02-28] MEDS: CARVEDILOL 6.25 MG TAB PO SCH (06:28)
[2019-02-28] MEDS: SODIUM CHLORIDE 0.9% 1,000 ML IV SCH (06:29)
[2019-02-28] MEDS ORDERED: LOSARTAN-HCTZ 50-12.5 MG 1 EACH TAB PO SCH (09:00)
[2019-02-28] MEDS ORDERED: ASPIRIN 81 MG PO SCH (09:00)
[2019-02-28] MEDS ORDERED: MONTELUKAST 10 MG TAB PO SCH (09:00)
[2019-02-28] MEDS: amLODIPine 5 MG TAB PO SCH (09:25)
[2019-02-28 12:09] LABS: Basophils # (A) 0.1 k/uL (0-0.2); Basophils % (A) 1 %; Eosinophils # (A) 0.2 k/uL (0-0.7); Eosinophils % (A) 2 %; HCT 47.2 % (39.0-53.0); HGB 15.5 gm/dL (13.0-17.5); Lymphocytes # (A) 2.2 k/uL (1.0-4.8); Lymphocytes % (A) 23 %; MCHC 32.8 g/dL (31.0-37.0); MCV 94.5 fL (80.0-100.0); Mean Platelet Volume 7.4; Monocytes # (A) 0.9 k/uL (0-1.0); Monocytes % (A) 9 %; Neutrophils # (A) 5.9 k/uL (1.3-7.7); Neutrophils % (A) 63 %; Platelet Count 200 k/uL (150-450); RBC 4.99 m/uL (4.30-5.90); RDW 12.8 % (11.5-15.5); WBC 9.3 k/uL (3.8-10.6)
--- NOTE | 2019-02-28 12:10 | P.CRDCN ---
History of Present Illness Consult date: 02/28/19 Reason for Consult (text): CAD s/p CABG Chief complaint: CAD s/p CABG History of present illness: HISTORY OF PRESENT ILLNESS AND PLAN: This is a 63-year-old male with history of TRAE, obesity, smoking 3 PPD 40 years, PAD, hyperlipidemia, hypertension, CAD s/p CABG in 2013, MD, PAF/atrial flutter status post cardioversion 2013 and bilateral carotid artery disease. Patient is recently s/p left common femoral, superficial femoral, profundus femoris endarterectomy with patch angioplasty on 02/27/[address] Tyler. Pt currently sitting up in chair and doing will with no current complaints of chest pain, chest pressure, shortness of breath or palpitations. Patient has LEFT GROIN wound VAC that is clean dry and intact. Patient able to stand and move from chair to bed without assistance. Patient has no complaints of shortness of breath with activity or ambulation. Vital signs stable, 98% on room air. Afebrile. Pt does have significant smoking history of 3 packs per day [address] Arnold in office and is status post atrial flutter cardioversion on 02/14/2014. Continues sinus rhythm controlled rate at 69. Most recent echo at office shows mild decrease in LV function at 50-55%. SIGNIFICANT PAST MEDICAL HISTORY: TRAE, obesity, smoking 3 PPD 40 years, PAD, hyperlipidemia, hypertension, CAD s/p CABG in 2013, MD, PAF/atrial flutter status post cardioversion 2013 and bilateral carotid artery disease. PAST SURGICAL HISTORY: See list. EKG = (tele - no EKG ordered) SR, HR 69 SIGNIFICANT LABORATORY VALUES: No new labs. U/A negative. Most recent echo 03/27/18 = EF 55%, mild concentric LVH. Mild MR. Mild TR. REVIEW OF SYSTEMS: CONSTITUTIONAL: Denies fever. Denies chills. EYES: Denies blurred vision. Denies blurred vision or vision changes. Denies eye pain. EARS, NOSE, MOUTH & THROAT: Denies headache. Denies sore throat. Denies ear pain Denies hemoptysis. CARDIOVASCULAR: Denies chest pain. Denies shortness of breath. Denies orthopnea. Denies PND. Denies palpitations. RESPIRATORY: Denies cough. Denies shortness of breath. GASTROINTESTINAL: Denies abdominal pain or distention. Denies diarrhea. Denies constipation. Denies nausea. Denies vomiting. MUSCULOSKELETAL: Denies myalgias. INTEGUMENTARY: Denies pruitis. Denies rash. C/o of wound vac to LEFT groin. ENDOCRINE: Denies fatigue. Denies weight change. Denies polydipsia. Denies polyurina Denies heat/cold intolerance. GENITOURINARY: Denies burning, hematuria or urgency with micturation. HEMATOLOGIC: Denies history of anemia. Denies bleeding. NEUROLOGIC: Denies numbness. Denies tingling. Denies weakness. PSYCHIATRIC: Denies anxiety. Denies depression. PHYSICAL EXAM: VITAL SIGNS: 153/72, heart rate 56. Afebrile. 99% on room air. GENERAL: Well developed, in no acute distress. HEENT: Head is atraumatic, normocephalic. Pupils are equal, round. Extra ocular movements intact. Mucous membranes moist. Neck supple. No JVD. No carotid bruit. No thyromegaly. LUNGS: Clear to auscultation. No wheezes, rales or rhonchi. No chest wall tenderness on palpation or with deep breathing. HEART: Regular rate and rhythm, no rubs or gallops. S1 and S2 heard. No murmur. ABDOMEN: Abdominal exam, WNL. Bowel sounds x4 quads. Soft, non-tender, without masses, organomegaly, or abdominal aorta enlargement. EXTREMITIES/VASCULAR: LEFT GROIN wound vac CDI. Extremities have easily palpable radial and right femoral pulses. Diminished dorsalis pedis and posterior tibial pulses. No cyanosis, calf tenderness. No BLE edema. NEUROLOGIC: Patient is awake, alert and oriented x3. No focal neurologic abnormalities. FINAL IMPRESSION: 1. S/p left common femoral, superficial femoral, profundus femoris endarterectomy with patch angioplasty 2. CAD s/p CABG with Dr. Guzmán 3. hypertension 4. hyperlipidemia 5. atrial flutter status post cardioversion 6. Smoking 3 packs per day 40 years PLAN: Patient doing well with no complaints of chest pain or discomfort. Okay for D/C from cardiology perspective. Continue same all medical/medical dictation regime. Follow-up with Dr. Cruz outpatient. Nurse Practitioner note has been reviewed by the Physician. Signing provider agrees with the documented findings, assessment and plan of care. Past Medical History Past Medical History: Atrial Flutter, Coronary Artery Disease (CAD), Hyperlipidemia, Hypertension, Myocardial Infarction (MD) Additional Past Medical History / Comment(s): MD 8 years ago and stent placement in [place]. SOB with activity. Uses inhalers for past smoking history. Last Myocardial Infarction Date:: 01/22/2014 History of Any Multi-Drug Resistant Organisms: None Reported Past Surgical History: Back Surgery, Coronary Bypass/CABG, Heart Catheterization With Stent, Orthopedic Surgery, Tonsillectomy Additional Past Surgical History / Comment(s): R carpal tunnel. Past Anesthesia/Blood Transfusion Reactions: No Reported Reaction Date of Last Stent Placement:: 01/22/2014 Past Psychological History: No Psychological Hx Reported Smoking Status: Former smoker (Patient smoked about a pack every day and he quit and 70,014.) Past Alcohol Use History: Occasional Additional Past Alcohol Use History / Comment(s): Quit smoking 2013 Past Drug Use History: None Reported - Past Family History Daughter(s) Family Medical History: No Reported History Additional Family Medical History / Comment(s): Patient was adopted. Does not know family history. Medications and Allergies Home Medications Medication Instructions Recorded Confirmed Type Aspirin EC [Ecotrin Low Dose] 162 mg PO DAILY #60 tablet. 02/11/14 02/27/19 Rx Carvedilol [Coreg] 6.25 mg PO BID 10/08/17 02/27/19 History Montelukast [Singulair] 10 mg PO DAILY 10/08/17 02/27/19 History amLODIPine [Norvasc] 5 mg PO BID 10/08/17 02/27/19 History Evolocumab [Repatha Syringe] 140 mg SQ Q14D 10/09/18 02/27/19 History Simvastatin [Zocor] 10 mg PO HS 01/23/19 02/27/19 History Losartan/Hydrochlorothiazide 1 each PO DAILY 02/24/19 02/27/19 History [Losartan-Hctz 100-25 mg Tab] Cephalexin [Keflex] 500 mg PO TID #18 cap 02/28/19 Rx Allergies Allergy/AdvReac Type Severity Reaction Status Date / Time tequin Allergy RED SKIN, Uncoded 02/27/19 06:24 TINGLING IN EXTREMITIES Physical Exam Vitals: Vital Signs Temp Pulse Resp BP Pulse Ox 02/28/19 08:00 98.0 F 56 L 18 153/72 99 02/28/19 03:53 97.6 F 68 20 122/66 98 02/27/19 23:37 98.1 F 72 18 144/71 97 02/27/19 20:58 97.9 F 66 18 126/66 95 02/27/19 15:42 97.8 F 74 20 123/67 94 L 02/27/19 12:00 74 20 124/64 94 L Intake and Output 02/27/19 02/28/19 02/28/19 22:59 06:59 14:59 Intake Total 600 Balance 600 Intake: Oral 600 Other: Voiding Method Toilet Toilet Toilet Urinal Urinal Urinal # Voids 1 Weight 122.2 kg Results Current Medications Generic Name Dose Route Start Last Admin Trade Name Freq PRN Reason Stop Dose Admin Hydrocodone Bitart/Acetaminophen 1 each 02/27/19 10:01 [place] 5-325 PO Q4HR PRN Pain Scale 6 to 7 Amlodipine Besylate 5 mg 02/27/19 21:00 02/28/19 09:25 Norvasc PO 5 mg BID OLESYA Administration Aspirin 162 mg 02/28/19 09:00 02/28/19 09:25 Aspirin PO 162 mg DAILY OLESYA Administration Atorvastatin Calcium 10 mg 02/27/19 21:00 02/27/19 20:43 Lipitor PO 10 mg HS OLESYA Administration Carvedilol 6.25 mg 02/27/19 17:30 02/28/19 06:28 Coreg PO 6.25 mg BID-W/MEALS OLESYA Administration Cephalexin 500 mg 02/28/19 16:00 Keflex PO TID OLESYA HCTZ/Losartan Potassium 2 each 02/28/19 09:00 02/28/19 09:25 Hyzaar 50-12.5 PO 2 each DAILY OLESYA Administration Lactated Ringer's 1,000 mls @ 20 mls/hr 02/27/19 06:01 02/27/19 06:43 Lactated Ringers IV 1,000 mls .Q24H OLESYA Administration Sodium Chloride 1,000 mls @ 80 mls/hr 02/27/19 10:15 02/28/19 06:29 Saline 0.9% IV 80 mls/hr .[id number] OLESYA Administration Montelukast Sodium 10 mg 02/28/19 09:00 02/28/19 09:25 Singulair PO 10 mg DAILY OLESYA Administration Morphine Sulfate 2 mg 02/27/19 10:01 Morphine Sulfate (Inj) IVP Q1HR PRN Mild Pain Intake and Output 02/27/19 02/28/19 02/28/19 22:59 06:59 14:59 Intake Total 600 Balance 600 Intake: Oral 600 Other: Voiding Method Toilet Toilet Toilet Urinal Urinal Urinal # Voids 1 Weight 122.2 kg - EKG Interpretation EKG: sinus rhythm
[2019-02-28 12:16] LABS: ALT 26 U/L (4-49); AST 38 U/L (17-59); African American GFR (CKD) >90 (>60 ml/min/1.73 sqM); Albumin 4.4 g/dL (3.5-5.0); Alkaline Phosphatase 48 U/L (38-126); Anion Gap 8 mmol/L; Blood Urea Nitrogen 20 mg/dL (9-20); Calcium 9.4 mg/dL (8.4-10.2); Carbon Dioxide 28 mmol/L (22-30); Chloride 101 mmol/L (98-107); Glucose 86 mg/dL (74-99); Non-African American GFR(CKD) >90 (>60 ml/min/1.73 sqM); Sodium 137 mmol/L (137-145); Total Bilirubin 0.7 mg/dL (0.2-1.3); Total Protein 7.8 g/dL (6.3-8.2)
[2019-02-28 12:56] LABS: Potassium 4.2 mmol/L (3.5-5.1)
--- NOTE | 2019-02-28 13:20 | P.DS ---
Providers Date of admission: 02/27/19 06:05 Attending physician: Puma Tyler DO Consults: 02/27/19 10:07 Consult Physician Routine Consulting Provider: Manolo Morales Consult Reason/Comments: medical management Do you want consulting provider notified?: Yes 02/27/19 14:53 Consult Physician Routine Consulting Provider: Amanda Torres Reason/Comments: medical management Do you want consulting provider notified?: Yes [facility] Course: Patient seen and examined. He was admitted for an outpatient planned surgical intervention of a left femoral endarterectomy patch angioplasty. He underwent this on 02/27/2019 which he tolerated well. In the follow-up. After removal of the Cade catheter he was having sensations of burning with urination. A urinalysis was ordered and subsequent antibiotics ordered for a urinary tract infection. This was sent to his pharmacy. Overall he is doing well in the postoperative period, he states his foot feels much better he is able to actually feel his foot. He denies any nausea or vomiting. He is able to ambulate without difficulty. His pain is well controlled. He is in no acute distress. HEENT is normal cephalic, atraumatic, excellent motion intact. Heart is regular. Lungs are clear. Abdomen is soft. Abdomen is obese. He does have an umbilical hernia which is reducible. Left groin incision with incisional VAC in place with good seal. Left lower extremity mild edema. Palpable posterior tibial pulse. Weakly palpable but able to feel the dorsalis pedis as well. Motor sensory intact. At this point he appears to be in stable condition for discharge home. We will maintain his aspirin and statin as well as adding a Plavix prescription. 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 He'll follow up with Dr. Tyler in 2 weeks. Discharge instructions were verbalized the patient and his at the bedside. They seemingly understand and are willing to proceed. They're to call if they have any issues or concerns. Plan - Discharge Summary Discharge Rx Participant: Yes New Discharge Prescriptions: New Cephalexin [Keflex] 500 mg PO TID #18 cap Clopidogrel [Plavix] 75 mg PO DAILY #30 tablet Continue Aspirin EC [Ecotrin Low Dose] 162 mg PO DAILY #60 tablet. amLODIPine [Norvasc] 5 mg PO BID Montelukast [Singulair] 10 mg PO DAILY Carvedilol [Coreg] 6.25 mg PO BID Evolocumab [Repatha Syringe] 140 mg SQ Q14D Simvastatin [Zocor] 10 mg PO HS Losartan/Hydrochlorothiazide [Losartan-Hctz 100-25 mg Tab] 1 each PO DAILY Discharge Medication List Aspirin EC [Ecotrin Low Dose] 162 mg PO DAILY #60 tablet. 02/11/14 [Rx] Carvedilol [Coreg] 6.25 mg PO BID 10/08/17 [History] Montelukast [Singulair] 10 mg PO DAILY 10/08/17 [History] amLODIPine [Norvasc] 5 mg PO BID 10/08/17 [History] Evolocumab [Repatha Syringe] 140 mg SQ Q14D 10/09/18 [History] Simvastatin [Zocor] 10 mg PO HS 01/23/19 [History] Losartan/Hydrochlorothiazide [Losartan-Hctz 100-25 mg Tab] 1 each PO DAILY 02/24/19 [History] Cephalexin [Keflex] 500 mg PO TID #18 cap 02/28/19 [Rx] Clopidogrel [Plavix] 75 mg PO DAILY #30 tablet 02/28/19 [Rx] Follow up Appointment(s)/Referral(s): Manolo Morales MD [Primary Care Provider] - 1 Week Puma Tyler DO [STAFF PHYSICIAN] - 2 Weeks Patient Instructions/Handouts: Negative Pressure Wound Therapy (DC) Activity/Diet/Wound Care/Special Instructions: May remove wound VAC dressing in 7 days. No showering well VAC in place. Light activity until seen by Dr. Tyler Discharge Disposition: HOME SELF-CARE
[2019-02-28] MEDS ORDERED: CLOPIDOGREL 75 MG TAB PO STA (13:39)
--- NOTE | 2019-02-28 14:24 | P.PN ---
Subjective Progress Note Date: 02/28/19 This is 63 year old male one of Manolo Morales with a previous medical history significant for hypertension and hypertensive cardiovascular disease with left ventricular hypertrophy, coronary artery disease status post coronary artery bypass graft for three-vessel disease back in 2013 and prior PCI many years ago prior to his CABG, atrial fibrillation, history of PAD status post angiogram patient underwent left common femoral superficial femoral profundus femoris endarterectomy with patch angioplasty, and we were asked to see the patient for medical management. 02/28: Patient is sitting up in a chair resting comfortably. Patient is interested to go home he is postop day #1 not having any difficulties. Pain is under control he has not had any pain medications since the intervention. At this time patient is awaiting vascular surgery for discharge home. Patient did have a positive urinary tract infection. Patient states that the symptoms of burning with urination have stopped. We will transition him to by mouth antibiotics to complete for 6 days. Review of Systems Constitutional: Denies anorexia, Denies chronic headaches, Denies lethargy, Denies weakness, Denies weight gain Eyes: denies as per HPI, denies blurred vision, denies bulging eye Ears: deny: decreased hearing Ears, nose, mouth and throat: Denies dysphagia, Denies neck lump, Denies sore throat Cardiovascular: Denies chest pain, Denies claudication, Denies decreased exercise tolerance, Denies lightheadedness, Denies rapid heart beat, Denies syncope Respiratory: Reports snoring, Denies congestion, Denies cough, Denies cough with sputum, Denies home oxygen, Denies sleep apnea, Denies wheezing Gastrointestinal: Denies abdominal pain, Denies bloating, Denies BRBPR, Denies hematemesis, Denies hematochezia, Denies melena, Denies nausea, Denies vomiting Musculoskeletal: Denies myalgias Musculoskeletal: absent: ankle pain, ankle stiffness, ankle swelling, elbow pain, elbow stiffness, elbow swelling, foot pain, foot stiffness, foot swelling, hand pain, hand stiffness, hand swelling, hip pain, hip stiffness, hip swelling, knee pain, knee stiffness, knee swelling, shoulder pain, shoulder stiffness, shoulder swelling, wrist pain, wrist stiffness, wrist swelling Integumentary: Denies pruritus, Denies rash Neurological: Denies numbness, Denies weakness Psychiatric: Denies anxiety, Denies depression Endocrine: Denies fatigue, Denies weight change Objective - Vital Signs Vital signs: Vital Signs Temp 98.0 F 02/28/19 08:00 Pulse 56 L 02/28/19 08:00 Resp 20 02/28/19 08:00 BP 153/72 02/28/19 08:00 Pulse Ox 99 02/28/19 08:00 Intake & Output 02/27/19 02/28/19 02/28/19 18:59 06:59 18:59 Intake Total 2702 240 Output Total 820 Balance 1882 240 Weight 121.3 kg 122.2 kg Intake: IV 2102 Oral 600 240 Output: Urine 720 Estimated Blood Loss 100 Other: Voiding Method Toilet Toilet Urinal Urinal # Voids 1 1 - Exam HEENT: Head is atraumatic, normocephalic, pupils were equal round and reactive to light and accommodation, extraocular muscle movement were intact. His membranes mouth are somewhat dry. Neck: Short, thick, no JVP, no bruit. Chest: Decreased breath sounds at the bases, few rhonchi, no expiratory wheezes, no chest wall tenderness, no intercostal retractions per Heart: First heart sound is depressed, second heart sounds normal, there is no gallop, there is systolic ejection murmur 2/6 was normal. Abdomen: Soft nontender, nondistended, positive bowel sounds. Extremities: There is a wound VAC in the left groin, dorsalis pedis +2 bilaterally. Neurologic examination: Patient is awake alert and oriented 3, cranial nerves II through XII appear grossly intact, muscle power 4 out of 5 in upper extremities and 4 out of 5 in bilateral lower extremities. - Labs CBC & Chem 7: 02/28/19 11:28 02/28/19 11:28 Labs: Abnormal Lab Results - Last 24 Hours (Table) 02/27/19 Range/Units 15:35 Urine Protein 1+ H (Negative) Urine Blood Moderate H (Negative) Ur Leukocyte Esterase Large H (Negative) Urine RBC 51 H (0-5) /hpf Urine WBC 75 H (0-5) /hpf Urine Mucus Rare H (None) /hpf Microbiology - Last 24 Hours (Table) 02/27/19 15:35 Urine Culture - Preliminary Urine,Voided Assessment and Plan Plan: 1. Post operative day #1 status post left common femoral superficial femoral and profundus femoris endarterectomy with patch angioplasty. Patient was instructed to use the incentive spirometer to reduce the incidence of atelectasis and healthcare associated pneumonia, continue with pain management with vascular surgery. Discharged from medical standpoint. Follow up as instructed with vascular surgery 2. CAD post-PCI and CABG back in 2013. Continue patient on aspirin 162 mg once every day, Coreg 6.25 mg orally twice every day, Lipitor 10 mg orally once every day. 3. Hypertension and hypertensive cardiovascular disease. Continue patient on losartan 100/25 mg orally once every day, Coreg 6.25 mg orally twice every day, and amlodipine 5 mg orally twice every day. 4. Hyperlipidemia. Continue with Lipitor 10 mg orally once every day. 5. Obesity with possible obstructive sleep apnea. Patient was instructed to have a polysomnogram as an outpatient and likely will require CPAP. 6. PAD. Continue treatment as in paragraph #1. 7. Urinary tract infection. Keflex 500 mg 3 times a day for the next 6 days. Discharge plan: Home today Thank you for the consult. Impression and plan of care have been directed as dictated by the signing physician. Domonique Wright nurse practitioner acting as scribe for signing physician.
[2019-02-28 15:03] VITALS: BP 132/70; PULSE 66; RESP 18; TEMP 98.3
[2019-02-28] MEDS ORDERED: CEPHALEXIN 500 MG CAP PO SCH (16:00)
[2019-02-28 18:17] LABS: Hemoglobin A1C 5.8 % (4.0-6.0)
== END 2019-02-28 14:53 | disposition home or self-care (01) | DRG 253 ==
LOC: 2ORMAIN 06:05 → 3SCARD 10:42
PROVIDERS: ADMIT Surgery; ATTEND Surgery
PROC: 04UL0KZ Supplement Left Femoral Artery with Nonautologous Tissue Substitute, Open Approach (ICD-10-PCS; 2019-02-27)
PROC: 04CL0ZZ Extirpation of Matter from Left Femoral Artery, Open Approach (ICD-10-PCS; principal; 2019-02-27 07:30)
DX: I70.212 Atherosclerosis of native arteries of extremities with intermittent claudication, left leg (principal); I70.92 Chronic total occlusion of artery of the extremities; N39.0 Urinary tract infection, site not specified; I48.92 Unspecified atrial flutter; I11.9 Hypertensive heart disease without heart failure; E66.9 Obesity, unspecified; E78.5 Hyperlipidemia, unspecified; I25.10 Atherosclerotic heart disease of native coronary artery without angina pectoris; I25.2 Old myocardial infarction; I48.91 Unspecified atrial fibrillation; K42.9 Umbilical hernia without obstruction or gangrene; G47.33 Obstructive sleep apnea (adult) (pediatric); I65.23 Occlusion and stenosis of bilateral carotid arteries; Z95.1 Presence of aortocoronary bypass graft; Z95.5 Presence of coronary angioplasty implant and graft; Z79.82 Long term (current) use of aspirin; Z79.899 Other long term (current) drug therapy; Z87.891 Personal history of nicotine dependence; Z68.34 Body mass index [BMI] 34.0-34.9, adult; Z88.8 Allergy status to other drugs, medicaments and biological substances
CPT/HCPCS: 80053; 81001; 83036; 85025; 86850; 86900; 86901; 87086; 88304; 88305; 88311

== ENCOUNTER → 2019-11-30 | Outpatient (CLI) | payer MEDICARE ==
--- NOTE | 2019-11-30 12:41 | CT ---
EXAMINATION TYPE: CT angio abdomen DATE OF EXAM: 11/30/2019 COMPARISON: 08/07/2018 HISTORY: Abdominal aortic aneurysm CT DLP: 854.6 mGycm, Automated Exposure Control for Dose Reduction was Utilized. CONTRAST: CT scan of the abdomen and pelvis is performed with oral and with IV Contrast, patient injected with 100 mL of Isovue 370. FINDINGS: LUNG BASES: Heart is enlarged. Coronary artery calcification. LIVER/GB: Liver reduced attenuation correlate for hepatic steatosis no gallstones.. PANCREAS: No significant abnormality is seen. SPLEEN: No significant abnormality is seen. ADRENALS: No significant abnormality is seen. KIDNEYS: Bilateral simple renal cysts are noted.. BOWEL: Bowel gas pattern nonspecific. Findings compatible with diverticulosis. LYMPH NODES: No greater than 1cm abdominal or pelvic lymph nodes are appreciated. OSSEOUS STRUCTURES: Hypertrophic and degenerative changes of the spine.. OTHER: There is a mild to moderate atherosclerotic plaque of the aorta and its sidebranches. Maximal dimension is seen to measure 4.3 cm well below the origin of the renal arteries. Aneurysm originates approximately 2 cm below the lowest renal artery. There is ectasia of the proximal iliac vasculature with moderate atherosclerotic plaque extends into the external and internal iliac arteries. Single renal arteries bilaterally with mild atherosclerotic change involving the side branches of the aorta. There is a small fat-containing umbilical hernia. . IMPRESSION: 1. Infrarenal abdominal aortic aneurysm measures 4.3 cm and previously measured 4.2 cm. There is stab le. Ectasia of the proximal iliac vasculature. 2. Low density lesions in the kidneys are too small to characterize but likely related to simple cyst s.
== END | disposition home or self-care (01) ==
LOC: RADCTMAIN 11:11
PROVIDERS: ATTEND Internal Medicine Clinical Cardiac Electrophysiology
DX: I71.4 Abdominal aortic aneurysm, without rupture (principal); N28.89 Other specified disorders of kidney and ureter
CPT/HCPCS: 74175; Q9967

== ENCOUNTER → 2020-02-04 | Outpatient (CLI) | payer MEDICARE ==
--- NOTE | 2020-02-04 16:07 | CONS ---
CONSULTATION DATE OF SERVICE: 02/04/2020 This patient is a 64-year-old gentleman who has been evaluated in the sleep center for possible obstructive sleep apnea-hypopnea syndrome. HISTORY OF PRESENT ILLNESS/SLEEP-WAKE EVALUATION: Patient's usual sleep schedule is from 8:30 or 9 p.m. until a.m. Sometimes he wakes up around 4:30 and cannot fall asleep again. He has problems with falling asleep at the beginning of the night also, although no TV in bedroom. He usually sleeps on the side position. He wakes up from sleep up to 4 times, with 3 episodes of nocturia. He has a history of snoring and recent witnessed episodes by his of stopped breathing during sleep; also during surgery in the hospital. Positive history of gasping for air and restless legs. In the morning the patient wakes up tired, falling asleep during the day around 1-2 p.m. [place] Sleepiness Scale has significantly increased to 14. PAST MEDICAL HISTORY: Positive for hypertension, hyperlipidemia, coronary artery disease, COPD. PAST SURGICAL HISTORY: CABG, left leg surgery for artery problems. MEDICATIONS: 1. Aspirin 81 mg once a day. 2. Clopidogrel 75 mg once a day. 3. Amlodipine 5 mg once a day. 4. Carvedilol 6.25 mg once a day. 5. Valsartan 160 mg once a day. 6. Simvastatin 10 mg once a day. 7. Hydrochlorothiazide 10 mg once a day. 8. Albuterol and ipratropium inhalers several times a day. SOCIAL HISTORY: Positive for smoking for about 40 years up to 3 packs a day. FAMILY HISTORY: Unavailable. Patient was adopted. REVIEW OF SYSTEMS: Multiple awakenings from sleep, sleepiness during the day. PHYSICAL EXAMINATION: GENERAL: A pleasant gentleman without distress. VITAL SIGNS: BP 124/75, HR 64, RR 15, height 6 feet 2 inches, weight 260 pounds, BMI 33.6, temperature 98.1, oxygen saturation at room air 97%. HEENT: PERRLA, EOMI. Evaluation of oropharynx showed tongue protrudes midline. Low position of soft palate. Mallampati III - IV. NECK: Supple. No JVD. Thyroid is not palpable. Wide neck measuring 18-1/2 inches in circumference. LUNGS: Clear to percussion and to auscultation. Good air exchange. No wheezing or rhonchi. HEART: S1, S2 regular. No murmurs, gallops or rubs. ABDOMEN: Soft and nontender. Bowel sounds are present. No organomegaly appreciated. EXTREMITIES: No clubbing or cyanosis. GEL COATER: Awake, alert, and oriented X3. Cranial nerves 2 to 7 intact. There is no fasciculation or atrophy. noted. No focal deficits observed. IMPRESSION: 1. Snoring, witnessed episodes of stopped breathing during sleep, low position of soft palate, wide neck, sleepiness; obstructive sleep apnea-hypopnea syndrome. 2. Hypertension. 3. Coronary artery disease, status post CABG. 4. Chronic obstructive pulmonary disease, status post about 120 pack/years of smoking. 5. Hyperlipidemia. 6. Status post surgery on left leg for artery problems. PLAN: 1. Polysomnography for evaluation of patient's breathing during sleep. 2. CPAP/BiPAP titration if sleep study confirms obstructive sleep apnea-hypopnea syndrome. 3. Preferable position during sleep on the side. 4. No driving if patient feels any sleepiness. 5. I will see patient for follow up visit to explain results of testing and following plan. Thank you very much for referring this patient for consultation. Sincerely, Marlon Shen MD, PhD, FAASM Diplomat of [employer] [facility] [place] MMODL / LUANNEN: [id number] /
== END | disposition home or self-care (01) ==
LOC: SLEEP 14:34
PROVIDERS: ATTEND Internal Medicine
DX: G47.33 Obstructive sleep apnea (adult) (pediatric) (principal); I10 Essential (primary) hypertension; I25.10 Atherosclerotic heart disease of native coronary artery without angina pectoris; E78.5 Hyperlipidemia, unspecified; J44.9 Chronic obstructive pulmonary disease, unspecified; Z79.82 Long term (current) use of aspirin; Z79.899 Other long term (current) drug therapy; Z79.891 Long term (current) use of opiate analgesic; Z87.891 Personal history of nicotine dependence; Z98.890 Other specified postprocedural states; Z95.1 Presence of aortocoronary bypass graft
CPT/HCPCS: 99211